=== PATIENT | male | born 1960 | race Caucasian/White ===

== ENCOUNTER 2024-12-20 07:30 | Outpatient (CLI) | payer OTHER, SELFPAY ==
--- NOTE | ~2024-12-20 | NM_ITS ---
EXAMINATION: NM stress w perf spect multi DATE: 12/20/2024 09:32 INDICATION: Other forms of dyspnea TECHNIQUE: Rest images were obtained following intravenous administration of 10.9 mCi Tc99m tetrofosm in (Myoview). The patient performed an exercise activity. At peak exercise, 34.7 mCi Tc99m tetrofosmi n (Myoview) was administered intravenously, and stress images were obtained. Data was reconstructed i nto short axis and horizontal and vertical long axis SPECT images. Gated SPECT images were also obtai teresa. COMPARISON: None. FINDINGS: There is normal left ventricular perfusion without definite evidence of reversible or fixed perfusion abnormality to suggest ischemia or infarction. There is normal left ventricular chamber size, wall motion and ejection fraction. Left ventricular ejection fraction measures 67%. IMPRESSION: 1. Normal myocardial perfusion at rest and during stress. 2. Left ventricular ejection fraction measuring 67%. Reviewed, dictated and finalized at location B.
--- OUTSIDE RECORDS SUMMARY | 2024-12-20 07:34 | XMS_ITS | Clinical Summary ---
Author Organization [facility] Address [address] [place] [address] Care Team Providers Care Cardiology Nurse Practitioner Name Role Phone Jody Bruce MD Primary Care Provider + Source Comments [facility],non-owned Affiliates and Associated Physician Practices is amultiple site organization consisting of ambulatory clinics and hospital sitesin [place], [place] and [place]. This disclosure is being madepursuant to the Care Everywhere program and may not contain all information available regarding this patient. Last updated 18.[employer] [facility] Allergies No known active allergies Medications * Be aware that medications may not be up to date on this document. Alwaysverify current medications with the patient. 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 Gender Identity Not on file Sexual Orientation Not on file Last Filed Vital Signs Vital Sign Reading Time Taken Comments Blood Pressure 113/75 08/26/2018 10:23 AM ENGINEERING TEACHER Pulse 63 08/26/2018 10:23 AM ENGINEERING TEACHER Temperature 36.8 C (98.3 F) 08/26/2018 10:23 AM ENGINEERING TEACHER Respiratory Rate 16 08/26/2018 10:23 AM ENGINEERING TEACHER Oxygen Saturation 99% 08/26/2018 10:23 AM ENGINEERING TEACHER Inhaled Oxygen Concentration - - Weight 82.8 kg (182 lb 8 oz) 08/26/2018 9:33 AM ENGINEERING TEACHER Height 175.3 cm (5' 9 ) 08/26/2018 9:33 AM ENGINEERING TEACHER Body Mass Index 26.95 08/26/2018 9:33 AM ENGINEERING TEACHER Plan of Treatment Health Maintenance Due Date Last Done Comments COLOGUARD (AGES 45-75) - COL ON CA SCREENING 1960 CT COLONOGRAPHY - COLON CA SCREENING 1960 FIT - COLON CA SCREENING 1960 FLEX SIG - COLON CA SCREENING 1960 LIPID TESTING 1960 HIV SCREENING 1977 HEPATITIS C SCREENING 06/11/1980 DTAP/TDAP/TD VACCINES (1 - Tdap) 1981 PNEUMOCOCCAL VACCINE 50+ (1 of 1 - PCV) 2012 ZOSTER VACCINE (1 of 2) 2012 COVID-19 VACCINE (3 - 2023-2 5 season) 2024 09/24/2020, 09/02/2020 DEPRESSION SCREENING 08/23/2024 05/10/2024 INFLUENZA VACCINE (Season Ended) 2025 COLON MONITORING 08/26/2028 08/26/2018, 08/26/2018 COLONOSCOPY - COLON CA SCREENING 10/31/2033 11/01/2023, 08/26/2018, 08/26/2018 Colorectal Cancer Screening 10/31/2033 Respiratory Syncytial Virus (RSV) Vaccine Pt: or over 60 yrs (1 - 1-dose 75+ series) 2037 HEPATITIS B VACCINE Aged Out No longe r eligible based on patient's age to complete this topic HIB VACCINE Aged Out No longer eligi ble based on patient's age to complete this topic HPV VACCINE Aged Out No longer eligi ble based on patient's age to complete this topic MENINGOCOCCAL (Group B) VACCINE SHARED DECISION-MAKING Aged Out No longer eligible based on patient's age to complete this topic MENINGOCOCCAL GROUPS A/C/Y/W VACCINE Aged Out No longer eligible b ased on patient's age to complete this topic Procedures Procedure Name Priority Date/Time Associated Diagnosis Comments ENDOSCOPY, COLON, SCREENING Routine 08/26/2018 9:39 AM ENGINEERING TEACHER from Last 3 Months or Most Recently Relevant to Health Maintenance Results * ENDOSCOPY, COLON, SCREENING (08/26/2018 9:39 AM ENGINEERING TEACHER) Report Endoscopy POC _ Patient Name: Pablo Cole Procedure Date: 08/26/2018 9:39 AM Date of : 1960 Admit Type: Outpatient Age: 58 Gender: Male Attending MD: Addie Saldaña DO _ Procedure: Colonoscopy Indications: Screening for colorectal malignant neoplasm, High risk colon cancer surveillance: Personal history of colonic polyps Providers: Addie Saldaña DO (Doctor) Referring MD: Alireza Mota MD (Referring MD) Medicines: See the Anesthesia note for documentation of the administered medications Complications: No immediate complications. _ Procedure: Pre-Anesthesia Assessment: - ASA Grade Assessment: II - A patient with mild systemic disease. After I obtained informed consent, the scope was passed under direct vision. Throughout the procedure, the patient's blood pressure, pulse, and oxygen saturations were monitored continuously. The Colonoscope was introduced through the anus and advanced to the cecum, identified by appendiceal orifice and ileocecal valve. The colonoscopy was performed without difficulty. The patient tolerated the procedure well. The quality of the bowel preparation was good. Findings: The ascending colon appeared normal. Biopsies were taken with a cold forceps for histology. A few small-mouthed diverticula were found in the sigmoid colon. Internal hemorrhoids were found during retroflexion. The hemorrhoids were mild. _ Impression: - The ascending colon is normal. Biopsied. - Diverticulosis in the sigmoid colon. - Internal hemorrhoids. Recommendation: - Repeat colonoscopy in 5 years for surveillance. - Await pathology results. - Telephone my office for pathology results in 1 week. Procedure Code(s): --- Professional --- 76855, Colonoscopy, flexible; with biopsy, single or multiple --- Technical --- 31048, Colonoscopy, flexible; with biopsy, single or multiple Diagnosis Code(s): --- Professional --- Z12.11, Encounter for screening for malignant neoplasm of colon Z86.010, Personal history of colonic polyps K64.8, Other hemorrhoids K57.30, Diverticulosis of large intestine without perforation or abscess without bleeding --- Technical --- Z12.11, Encounter for screening for malignant neoplasm of colon Z86.010, Personal history of colonic polyps K64.8, Other hemorrhoids K57.30, Diverticulosis of large intestine without perforation or abscess without bleeding CPT copyright 2017 [employer]. All rights reserved. The codes documented in this report are preliminary and upon block sorter review may be revised to meet current compliance requirements. ___ Addie Saldaña DO 08/26/2018 10:13:03 AM This report has been signed electronically. Number of Addenda: 0 Note Initiated On: 08/26/2018 9:39 AM [facility] ENDOSCOPY 08/26/2018 9:39 AM ENGINEERING TEACHER us Addie Saldaña DO GI PROCEDURE ORDERABLES Edite d Result - Final [facility] ENDOSCOPY ARTEMIO Lopez [id number] from Last 3 Months or Most Recently Relevant to Health Maintenance Insurance [employer] Care Teams Cardiology Nurse Practitioner Relationship Specialty Start Date End Date Jody Bruce MD [address] [place] [address] PCP - General Family Medicine 08/26/18
--- NOTE | 2024-12-20 07:50 | EST_ITS ---
Patient Info Name: Pablo Cole Age: 64 years : 1960 Gender: Male Ht: 70 in Wt: 200 lbs BSA: 2.14 m2 HR: 62 bpm BP: 149 / 93 mmHg Exam Date: 12/20/2024 8:30 AM Exam Location: Echo Lab Patient Status: Outpatient Admit Date: 12/20/2024 Staff Ordering Physician: Katlyn Pham PA-C Attending Provider: Katlyn Pham PA-C Exercise Technologist: Sakina Lutz RDCS Exercise Physician: Jonathan Hernandez DO Exam Type: CA stress test treadmill w NM Study Info A nuclear stress test was performed. Summary 1. 1. Negative Pablo exercise stress test for ischemic ST changes by ECG criteria. 2. 2. Good functional capacity, achieving 12 METs of workload. 3. 3. Baseline hypertension. 4. 4. Appropriate HR response to exercise. 5. 5. Appropriate HR recovery at 1 minute post exercise. 6. 6. Nuclear scan to follow and will be reported separately. Please correlate with it. 7. 7. Patient informed of the above results. Protocol: Pablo Stress ECG Details Stage: REST Duration (min): 1 min : 13 sec Speed (mph): 0.0 Grade (%): 0 HR (bpm): 59 SBP (mmHg): 149 DBP (mmHg): 93 METS: --- Stage: REST Duration (min): 3 min : 4 sec Speed (mph): 0.0 Grade (%): 0 HR (bpm): 72 SBP (mmHg): 149 DBP (mmHg): 93 METS: --- Stage: STAGE 1 Duration (min): 1 min : 0 sec Speed (mph): 1.7 Grade (%): 10 HR (bpm): 93 SBP (mmHg): 149 DBP (mmHg): 93 METS: --- Stage: STAGE 1 Duration (min): 2 min : 0 sec Speed (mph): 1.7 Grade (%): 10 HR (bpm): 97 SBP (mmHg): 149 DBP (mmHg): 93 METS: --- Stage: STAGE 1 Duration (min): 3 min : 0 sec Speed (mph): 1.7 Grade (%): 10 HR (bpm): 98 SBP (mmHg): 164 DBP (mmHg): 84 METS: --- Stage: STAGE 2 Duration (min): 1 min : 0 sec Speed (mph): 2.5 Grade (%): 12 HR (bpm): 104 SBP (mmHg): 164 DBP (mmHg): 84 METS: --- Stage: STAGE 2 Duration (min): 2 min : 0 sec Speed (mph): 2.5 Grade (%): 12 HR (bpm): 109 SBP (mmHg): 166 DBP (mmHg): 54 METS: --- Stage: STAGE 2 Duration (min): 3 min : 0 sec Speed (mph): 2.5 Grade (%): 12 HR (bpm): 111 SBP (mmHg): 166 DBP (mmHg): 54 METS: --- Stage: STAGE 3 Duration (min): 1 min : 0 sec Speed (mph): 3.4 Grade (%): 14 HR (bpm): 122 SBP (mmHg): 183 DBP (mmHg): 82 METS: --- Stage: STAGE 3 Duration (min): 2 min : 0 sec Speed (mph): 3.4 Grade (%): 14 HR (bpm): 130 SBP (mmHg): 183 DBP (mmHg): 82 METS: --- Stage: STAGE 3 Duration (min): 3 min : 0 sec Speed (mph): 3.4 Grade (%): 14 HR (bpm): 132 SBP (mmHg): 186 DBP (mmHg): 78 METS: --- Stage: STAGE 4 Duration (min): 1 min : 0 sec Speed (mph): 4.2 Grade (%): 16 HR (bpm): 143 SBP (mmHg): 186 DBP (mmHg): 78 METS: --- Stage: STAGE 4 Duration (min): 1 min : 0 sec Speed (mph): 4.2 Grade (%): 16 HR (bpm): 143 SBP (mmHg): 186 DBP (mmHg): 78 METS: --- Stage: RECOVERY Duration (min): 0 min : 59 sec Speed (mph): 0.0 Grade (%): 0 HR (bpm): 121 SBP (mmHg): 180 DBP (mmHg): 74 METS: --- Stage: RECOVERY Duration (min): 1 min : 59 sec Speed (mph): 0.0 Grade (%): 0 HR (bpm): 73 SBP (mmHg): 180 DBP (mmHg): 74 METS: --- Stage: RECOVERY Duration (min): 2 min : 59 sec Speed (mph): 0.0 Grade (%): 0 HR (bpm): 74 SBP (mmHg): 158 DBP (mmHg): 84 METS: --- Stage: RECOVERY Duration (min): 3 min : 31 sec Speed (mph): 0.0 Grade (%): 0 HR (bpm): 75 SBP (mmHg): 158 DBP (mmHg): 84 METS: --- Rest HR: 72 bpm Peak HR: 145 bpm Rest Sys BP: 149 mmHg Peak Sys BP: 186 mmHg Max Pred HR: 158 bpm % Max Pred HR: 92 % Target HR: 134 bpm Max RPP: 26,970 bpm*mmHg Mackey Score: 4 Termination Reason: Reached target heart rate or workload Cardiac Symptoms: Shortness of breath Max ST Seg Deviation: 1 mm Total Time: 10 min : 0 sec Rest Pruett BP: 93 mmHg Peak Pruett BP: 78 mmHg Angina Score: None Total METS: 12.1 Resting ECG Sinus rhythm. Stress ECG No ST changes. Arrhythmias None. Report Signatures
== END 2024-12-20 07:31 | disposition home or self-care (01) ==
PROVIDERS: PCP Family Medicine; Visit Provider Student in an Organized Health Care Education/Training Program
DX: R06.09 Other forms of dyspnea (principal)
CPT/HCPCS: 78452; 93017; A9502